=== PATIENT | male | born 1970 | race Caucasian/White ===

== ENCOUNTER 2018-07-08 13:59 | Inpatient (IN) | payer OTHER ==
[~2018-07-08] VITALS: Ht 182.9 cm; Wt 89.8 kg
--- NOTE | ~2018-07-08 | EKG ---
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 : 1970 Requested By: Jenn Gaitan Order Number: [id number] MD: Galileo Reyes Measurements Intervals [place] Rate: 98 P: 25 [place]: 163 QRS: 31 QRSD: 74 T: 17 QT: 326 QTc: 417 Interpretive Statements Sinus rhythm Consider left ventricular hypertrophy Compared to ECG 06/11/2013 14:00:11 Sinus bradycardia no longer present Electronically Signed On 07-09-2018 8:48:00 CDT by Galileo Reyes [email or web address] <ELECTRONICALLY SIGNED> By: Galileo Reyes MD, [facility] 07/09/18 0848 21 21 Galileo Reyes MD, FACC /EPI
[2018-07-08 13:59] VITALS: BP 117/74
[~2018-07-08 13:59] MED LIST: ACEROLA C500 M2 PO; ACETAMINOPHEN650 M5 PO; ACIDOPHILUS PR1 EACH PO; AUGMENTIN 875875 M1 PO; BISACODYL SUPP10 MG RE; CLONAZEPAM 1 MG1 M1 PO; COLACE100 MG PO; DESYREL50 MG PO; ENOXAPARIN30 MG/0.1 INJECTION; JUVEN PACKET1 EACH PO; LEVAQUIN 500 M500 MG PO; LEXAPRO 10 MG T10 M2 PER TUBE; LYRICA150 MG PO; MOBIC7.5 M1; MOTION RELIEF25 MG PO; NEURONTIN800 MG PO; NORCO 10-325 T1 EACH PO; OXYCONTIN20 M1 PO; PRILOSEC40 MG PO; SENOKOT-S1 TA1 GT; TOPROL XL50 MG PO; ZINC SULFATE 2220 M1 PO; [UNRECOGNIZED DRUG - OTHER] PO
[2018-07-08 14:35] LABS: HEMATOCRIT 27.3 % (42.0-52.0); HEMOGLOBIN 9.3 gm/dL (14.0-18.0); MCH 29.2 pg (26.0-34.0); MCHC 34.1 g/dL (28.0-37.0); MCV 85.8 fL (80.0-100.0); RBC 3.19 mil/uL (4.50-6.00); RDW 13.8 % (10.5-14.5); WBC 9.7 thou/uL (4.0-11.0)
[2018-07-08 14:44] LABS: ANION GAP 5 mmol/L (7-16); BUN 21 mg/dL (7-18); CHLORIDE 105 mmol/L (98-107); CO2 28 mmol/L (21-32); GLUCOSE 110 mg/dL (74-106); POTASSIUM 3.9 mmol/L (3.5-5.1); SODIUM 138 mmol/L (136-145)
[2018-07-08 14:52] LABS: ALBUMIN 2.6 g/dL (3.4-5.0); LIPASE 84 U/L (73-393); SGOT 11 U/L (15-37); SGPT 17 U/L (30-65); TOTAL BILIRUBIN 0.2 mg/dL (<0.1-1.0); TOTAL PROTEIN 5.6 g/dL (6.4-8.2); TROPONIN-I <0.06 ng/mL (<0.06)
[2018-07-08] MEDS ORDERED: TRAZODONE HCL50 MG PO (15:18)
[2018-07-08] MEDS ORDERED: LIPITOR10 MG PO (15:19)
[2018-07-08] MEDS ORDERED: QUETIAPINE FUM100 MG PO (15:19)
[2018-07-08 17:02] LABS: URINE BILIRUBIN NEGATIVE (Negative); URINE BLOOD NEGATIVE (Negative); URINE CLARITY CLEAR; URINE COLOR YELLOW; URINE GLUCOSE-RANDOM* NEGATIVE (Negative); URINE KETONES NEGATIVE (Negative); URINE LEUKOCYTES-REFLEX NEGATIVE (Negative); URINE NITRITE-REFLEX NEGATIVE (Negative); URINE PROTEIN (DIPSTICK) NEGATIVE (Negative); URINE SPECIFIC GRAVITY 1.015 (1.005-1.035); URINE UROBILINOGEN 0.2 E.U./dl (0.2-1.0)
[2018-07-08 20:16] VITALS: BP 103/72
[2018-07-08 22:05] VITALS: BP 109/67
[2018-07-09] VITALS (12 sets, daily range): BP systolic 102–112; BP diastolic 67–69
[2018-07-09 06:02] LABS: ABSOLUTE NEUTROPHILS 3.8 thou/uL (1.4-8.2); BASOPHILS 0.8 % (0.0-2.0); EOSINOPHILS 2.5 % (0.0-3.0); HEMATOCRIT 22.9 % (42.0-52.0); HEMOGLOBIN 7.8 gm/dL (14.0-18.0); LYMPHOCYTES 35.2 % (24.0-44.0); MCH 29.5 pg (26.0-34.0); MCHC 34.3 g/dL (28.0-37.0); MONOCYTES 7.7 % (1.0-8.0); PLATELET COUNT 148 thou/uL (150-400); POLYS 53.8 % (36.0-66.0); RBC 2.66 mil/uL (4.50-6.00); RDW 14.1 % (10.5-14.5)
[2018-07-09 06:17] LABS: CALCIUM 7.8 mg/dL (8.5-10.1); CREATININE 0.7 mg/dL (0.7-1.3); POTASSIUM 3.9 mmol/L (3.5-5.1)
== END 2018-07-09 15:33 | disposition home or self-care (01) | DRG 919 ==
LOC: ER 13:59 → 4E 16:30 → EROBS 16:30 → 4E 20:38 → ENTRNSPT 07-09 15:10 → EDTRNSPTSTS 07-09 15:12 → 4E 07-09 15:33
PROVIDERS: Hospitalist; Student in an Organized Health Care Education/Training Program
DX: K91.870 Postprocedural hematoma of a digestive system organ or structure following a digestive system procedure (principal); E43 Unspecified severe protein-calorie malnutrition; G89.18 Other acute postprocedural pain; Y83.8 Other surgical procedures as the cause of abnormal reaction of the patient, or of later complication, without mention of misadventure at the time of the procedure; Y82.8 Other medical devices associated with adverse incidents; Z79.899 Other long term (current) drug therapy; Z87.891 Personal history of nicotine dependence; Y92.89 Other specified places as the place of occurrence of the external cause
CPT/HCPCS: 10084